=== PATIENT | male | born 1995 | race Two or more races ===

== ENCOUNTER 2018-09-18 03:31 | Emergency (ER) | payer OTHER ==
[~2018-09-18] VITALS: Ht 154.9 cm; Wt 56.7 kg
[2018-09-18] MEDS ORDERED: PEPCID40 MG PO (06:19)
[2018-09-18] MEDS ORDERED: ZOFRAN4 MG PO (06:19)
== END 2018-09-18 06:29 ==
LOC: ER 03:31 → CPU-OBS 03:44 → ER 03:44
DX: R07.89 Other chest pain (principal); R00.2 Palpitations; K29.70 Gastritis, unspecified, without bleeding
CPT/HCPCS: G0378; G0379; 93005; 82805; 36600